=== PATIENT | female | born 2000 | race Hispanic/Latino ===

== ENCOUNTER 2020-07-31 08:40 | Outpatient (CLI) | payer OTHER, SELFPAY ==
--- NOTE | 2020-07-31 | ECG_ITS ---
Measurements Intervals [place] Rate: 70 P: 8 VA: 137 QRS: 23 QRSD: 86 T: 24 QT: 374 QTc: 404 Interpretive Statements SINUS RHYTHM NORMAL ECG Electronically Signed On 07-31-2020 10:16:50 [employer] by Tyrone Yan D.O.
--- NOTE | 2020-07-31 | ECHO_ITS ---
Patient Info Name: Taylor Londono Age: 19 years : 2000 Gender: Female Ht: 64 in Wt: 210 lbs BSA: 2.12 m2 HR: 66 bpm BP: 130 / 97 mmHg Heart Rhythm: Sinus Rhythm Technical Quality: Good Exam Date: 07/31/2020 9:29 AM Exam Location: [facility] Pulmonary Patient Status: Outpatient Admit Date: 07/31/2020 Staff Ordering Physician: Paddy Barraza MD Leasing Manager: Hossein Almanza, JUANA, RT Attending Provider: Paddy Barraza MD Exam Type: CA echo doppler color flow Study Info Indications I10 - Essential (primary) hypertension Complete two-dimensional, color flow and Doppler transthoracic echocardiogram is performed. Summary 1. Complete two-dimensional, color flow and Doppler transthoracic echocardiogram is performed. 2. Left ventricular chamber dimension is normal. 3. Left ventricular systolic function is normal, estimated at 55-60%. 4. There is mildly increased left ventricular wall thickness. 5. Left ventricular septal wall motion is normal. 6. The left ventricular diastolic function is normal. 7. The mitral valve has thickened leaflets. 8. There is mild to moderate mitral valve regurgitation. 9. There is mild tricuspid valve regurgitation. 10. There is mild pulmonic regurgitation. Left Ventricle Left ventricular chamber dimension is normal. Left ventricular systolic function is normal, estimated at 55-60%. There is mildly increased left ventricular wall thickness. Left ventricular septal wall motion is normal. The left ventricular diastolic function is normal. Right Ventricle Right ventricular chamber dimension is normal. Right ventricular systolic function is normal. Left Atria Left atrial chamber dimension is normal. Right Atria Right atrial chamber dimension is normal. Atrial Septum Intact interatrial septum visualized by color flow imaging. Aortic Valve The aortic valve is trileaflet. There is no aortic valve sclerosis. There is no aortic valve stenosis. There is trace aortic valve regurgitation. Pulmonic Valve The pulmonic valve is normal. There is no pulmonic valve stenosis. There is mild pulmonic regurgitation. Mitral Valve The mitral valve has thickened leaflets. There is no mitral valve stenosis. There is mild to moderate mitral valve regurgitation. Tricuspid Valve The tricuspid valve leaflets are normal. There is no significant tricuspid valve stenosis. There is mild tricuspid valve regurgitation. Pericardium/Pleural The pericardium appears normal. There is trivial pericardial effusion. Inferior Vena Cava Normal inferior vena cava with >50% collapse upon inspiration consistent with normal right atrial pressure, 5 mmHg. Aorta The aortic root size at the sinus of Valsalva is normal. The prox ascending aorta size is normal. Left Ventricular Outflow Tract Name Value Normal LVOT 2D LVOT Diameter 2.0 cm LVOT Doppler LVOT Peak Gradient 5 mmHg LVOT Mean Gradient 3 mmHg LVOT VTI 21 cm LVOT VTI/AV VTI Ratio 0.7
== END 2020-07-31 08:41 | disposition home or self-care (01) ==
DX: I10 Essential (primary) hypertension (principal); I08.3 Combined rheumatic disorders of mitral, aortic and tricuspid valves
CPT/HCPCS: 93005; 93306

== ENCOUNTER 2020-08-28 13:54 | Outpatient (CLI) | payer OTHER, SELFPAY ==
--- NOTE | ~2020-08-28 | US_ITS ---
EXAMINATION: US renal BI EXAM DATE: 08/28/2020 14:42 INDICATION: Hypertension. Chronic kidney disease. TECHNIQUE: Multiple grayscale and Doppler images of the kidneys were obtained (by a technologist who performed the scan) and subsequently reviewed. There is no prior study for comparison. FINDINGS: Right kidney: There is normal contour and mildly increased echogenicity. It measures 9.9 x 4.4 x 7.3 centimeters. There are no focal renal lesions identified. There is no hydronephrosis. Left kidney: There is normal contour and mildly increased echogenicity. It measures 9.3 x 5.3 x 3.6 centimeters. There are no focal renal lesions identified. There is no hydronephrosis. Bladder unremarkable. IMPRESSION: Mildly echogenic renal cortices consistent with medical renal disease. Reviewed, dictated and finalized at location B. TER INSPECTOR IMPRESSION: Mildly echogenic renal cortices consistent with medical renal disea se.
== END 2020-08-28 13:55 | disposition home or self-care (01) ==
DX: I12.9 Hypertensive chronic kidney disease with stage 1 through stage 4 chronic kidney disease, or unspecified chronic kidney disease (principal); N18.9 Chronic kidney disease, unspecified
CPT/HCPCS: 76775

== ENCOUNTER 2020-09-29 14:31 | Outpatient (RCR) | payer OTHER, SELFPAY ==
[2020-09-29 16:39] LABS: Glucose 1 Hour PP 50gm Dose 105 mg/dL
[2020-09-29 17:27] LABS: HIV 1/2 Ab P24 Ag Result Negative (Negative)
[2020-10-02 07:18] LABS: Rapid Plasma Reagin Non-Reactive (NonReactive)
[2020-10-02] MEDS: RHO(D) IMMUNE GLOBULIN 300 MCG/2 ML SYRINGE IM (12:56)
== END 2020-12-28 23:59 | disposition home or self-care (01) ==
LOC: ANHLAB 14:31
PROVIDERS: Visit Provider Obstetrics & Gynecology
DX: Z11.4 Encounter for screening for human immunodeficiency virus [HIV] (principal); Z29.13 Encounter for prophylactic Rho(D) immune globulin; O36.0130 Maternal care for anti-D [Rh] antibodies, third trimester, not applicable or unspecified; Z3A.00 Weeks of gestation of pregnancy not specified
CPT/HCPCS: 36415; 82947; 85461; 86592; 86703; 86850; 86900; 86901; 90384; 96372; G0432; J2790

== ENCOUNTER 2020-10-20 11:42 | Outpatient (CLI) | payer OTHER, SELFPAY ==
[2020-10-20 12:00] VITALS: RESP 20; TEMP 36.8
[2020-10-20 12:07] VITALS: BP 145/92; PULSE 91
[2020-10-20 12:43] VITALS: BP 136/83; PULSE 85
[2020-10-20 13:09] VITALS: BP 134/87; PULSE 87
[2020-10-20 14:08] LABS: Basophils Percent Auto 0.3 % (0.2-1.2); Eosinophils Absolute Auto 0.1 K/mm3 (0-0.3); Eosinophils Percent Auto 0.8 % (0-4.4); Hematocrit 27.7 % (37.0-47.0); Hemoglobin 9.4 g/dL (12.0-15.0); Immature Granulocyte Percent A 0.7 % (0-0.5); Lymphocytes Absolute Auto 1.91 K/mm3 (0.9-3.2); Lymphocytes Percent Auto 12.8 % (18.3-44.2); Mean Corpuscular HGB Conc 33.9 g/dl (32-36); Mean Corpuscular Hemoglobin 31.4 pg (26-34); Mean Corpuscular Volume 92.6 fl (80-100); Mean Platelet Volume 10.5 fl (7.4-10.4); Monocytes Absolute Auto 0.9 K/mm3 (0.1-0.6); Neutrophils Absolute Auto 11.9 K/mm3 (1.3-6.7); Neutrophils Percent Auto 79.4 % (45.5-73.1); Platelet Count Result 297 k/mm3 (150-375); Red Blood Count 2.99 M/mm3 (4.2-5.4); Red Cell Distribution Width 12.4 % (11.5-14.5)
[2020-10-20 14:14] LABS: Creatinine Urine 167.8 mg/dL; Total Protein Urine Random 21 mg/dL; Ur Ttl Prot Creatinine Ratio 0.13 mg/mg (0-0.20)
[2020-10-20 14:15] LABS: Add Urine Microscopic? YES; Appearance Urine Cloudy (Clear); Bacteria Urine Trace /hpf; Bilirubin Urine Negative (Negative); Blood Urine Negative (Negative); Color Urine Yellow (Yellow); Glucose Urine UA Negative (Negative); Ketones Urine Negative (Negative); Leukocyte Esterase Ur Trace LEU/UL (NEGATIVE); Mucus Urine Rare /lpf; Nitrate Urine Negative (Negative); Protein Urine 1+ mg/dL (Negative); RBC Urine 0-2 /hpf (0-2); Specific Grav Ur 1.021 (1.001-1.035); Squamous Epithelial Cell Urine Many /hpf (Few); Urobilinogen Urine Negative mg/dL (<2.0); WBC Urine 0-3 /hpf (0-3)
[2020-10-20 14:17] LABS: Alanine Aminotransferase 18 U/L (4-35); Albumin Level 3.3 g/dL (3.5-5.1); Alkaline Phosphatase 100 U/L (38-126); Anion Gap 4 mmol/L (8-16); Aspartate Amino Transferase 16 U/L (14-36); Bilirubin,Total < 0.1 mg/dL (0.2-1.3); Blood Urea Nitrogen 18 mg/dL (7-17); Calcium 8.7 mg/dL (8.4-10.2); Carbon Dioxide 20 mmol/L (22-30); Chloride 113 mmol/L (98-107); Estimated Glomerular Filt Rate 48; Glucose 91 mg/dL (65-105); Potassium 4.8 mmol/L (3.4-5.0); Sodium 137 mmol/L (137-145); Uric Acid 6.3 mg/dL (2.5-7.5)
[2020-10-20 14:21] VITALS: BMI 37.8
--- NOTE | 2020-10-20 14:22 | OBADM ---
This patient, Taylor Londono, admitted to the OB room OB Post 116 for observation. Patient/family oriented to hospital policies and general routines including ID bracelet, bed and alarms, visiting hours, pain management, procedures, bathroom and other care routines, personal items, smoking policy, room service/diet, and visiting hours. Patient/Family are encouraged to report perceived risks to care and to ask questions if they do not understand what they are told or what they should do.
[2020-10-20] MEDS: ACETAMINOPHEN 500 MG TABLET 1000 MG PO (14:34)
== END 2020-10-20 15:23 | disposition home or self-care (01) ==
LOC: ANHOBOP 11:46 → ANHOBPP 11:47
PROVIDERS: Advanced Practice Midwife; Visit Provider Obstetrics & Gynecology
DX: O13.9 Gestational [pregnancy-induced] hypertension without significant proteinuria, unspecified trimester (principal); Z3A.00 Weeks of gestation of pregnancy not specified
CPT/HCPCS: 36415; 59025; 80053; 81001; 82570; 84156; 84550; 85025; 87086; 87088; 99199; A9270

== ENCOUNTER 2020-11-06 14:37 | Outpatient (RCR) | payer OTHER, SELFPAY ==
[2020-11-06] MEDS: BETAMETHASONE SOD PHOS/ACETATE 30 MG/5 ML VIAL 12 MG IM (15:02)
== END 2020-11-17 10:11 | disposition home or self-care (01) ==
LOC: ANHOBOP 14:37
PROVIDERS: Visit Provider Obstetrics & Gynecology
DX: O36.8990 Maternal care for other specified fetal problems, unspecified trimester, not applicable or unspecified (principal); Z3A.00 Weeks of gestation of pregnancy not specified
CPT/HCPCS: 96372; J0702

== ENCOUNTER 2020-11-07 12:11 | Inpatient (IN) | payer OTHER, SELFPAY ==
[2020-11-07] VITALS (15 sets, daily range): BP systolic 129–157; BP diastolic 67–99; PULSE 76–110; TEMP 36.6–36.9; BMI 37.6
--- NOTE | 2020-11-07 12:44 | LDADM ---
This patient, Taylor Londono, was admitted to Labor/Delivery/Recovery 108 on 11/07/20 at 12:11. Plans for labor, pain management and were discussed with patient. Patient/family oriented to hospital policies and general routines including ID bracelet, bed and alarms, visiting hours, pain management, procedures, bathroom and other care routines, personal items, smoking policy, room service/diet and guest tray routines, security routines, call light, and visiting hours. Patient/Family are encouraged to report perceived risks to care and to ask questions if they do not understand what they are told or what they should do. See OBIX for further documentation.
[2020-11-07 13:11] LABS: Basophils Percent Auto 0.1 % (0.2-1.2); Hematocrit 28.2 % (37.0-47.0); Hemoglobin 9.6 g/dL (12.0-15.0); Immature Granulocyte Absolute 0.25 K/mm3 (0.00-0.031); Immature Granulocyte Percent A 1.2 % (0-0.5); Lymphocytes Absolute Auto 1.88 K/mm3 (0.9-3.2); Lymphocytes Percent Auto 8.9 % (18.3-44.2); Mean Corpuscular Hemoglobin 31.4 pg (26-34); Mean Corpuscular Volume 92.2 fl (80-100); Mean Platelet Volume 10.6 fl (7.4-10.4); Monocytes Absolute Auto 1.2 K/mm3 (0.1-0.6); Monocytes Percent Auto 5.4 % (2.6-8.5); Neutrophils Absolute Auto 17.9 K/mm3 (1.3-6.7); Neutrophils Percent Auto 84.4 % (45.5-73.1); Platelet Count Result 381 k/mm3 (150-375); Red Blood Count 3.06 M/mm3 (4.2-5.4); Red Cell Distribution Width 12.6 % (11.5-14.5); White Blood Count 21.2 K/mm3 (4.5-10.0)
--- NOTE | 2020-11-07 13:11 | WPDOBADMIT ---
Obstetrics - Admit Note Admission Note: See record, especially my note from yesterday. G1 34.2 with cHTN since age 8. Now with elevated LFTs and uric acid and worsening BPs over last 2 weeks. On procardia 60 BID and labetalol 200 BID. Discussed with MFM and recommend delivery. Received BMTZ #1 yesterday. FHT category 1. Cervix . Vertex on BSUS. Cervidil placed. BMTZ #2 today.
[2020-11-07] MEDS: DINOPROSTONE 10 MG VAG INSERT VAGINAL (13:12)
[2020-11-07 13:22] LABS: Alanine Aminotransferase 69 U/L (4-35); Albumin Level 3.4 g/dL (3.5-5.1); Alkaline Phosphatase 112 U/L (38-126); Anion Gap 4 mmol/L (8-16); Aspartate Amino Transferase 26 U/L (14-36); Bilirubin,Total 0.1 mg/dL (0.2-1.3); Blood Urea Nitrogen 22 mg/dL (7-17); Calcium 9.4 mg/dL (8.4-10.2); Carbon Dioxide 17 mmol/L (22-30); Chloride 115 mmol/L (98-107); Estimated CRCL calculation 51 ml/min; Estimated Glomerular Filt Rate 36; Glucose 113 mg/dL (65-105); Potassium 4.7 mmol/L (3.4-5.0); Sodium 136 mmol/L (137-145)
[2020-11-07] MEDS: BETAMETHASONE SOD PHOS/ACETATE 30 MG/5 ML VIAL 12 MG IM (15:42)
[2020-11-07 18:04] LABS: Add Urine Microscopic? YES; Appearance Urine Cloudy (Clear); Bacteria Urine Trace /hpf; Bilirubin Urine Negative (Negative); Blood Urine Negative (Negative); Color Urine Yellow (Yellow); Glucose Urine UA Negative (Negative); Ketones Urine Negative (Negative); Leukocyte Esterase Ur 2+ LEU/UL (Negative); Mucus Urine Rare /lpf; Nitrate Urine Negative (Negative); Protein Urine 1+ mg/dL (Negative); RBC Urine 0-2 /hpf (0-2); Specific Grav Ur 1.024 (1.001-1.035); Squamous Epithelial Cell Urine Many /hpf (Few); Transitional Epi Cells Urine Rare /hpf (None Seen)
[2020-11-07 18:20] LABS: Amphetamine Screen Urine Negative (Negative); Barbiturate Screen Urine Negative (Negative); Benzodiazepines Screen Urine Negative (Negative); Cannabinoid Screen Urine Positive (Negative); Cocaine Screen Urine Negative (Negative); Methadone Screen Urine Negative (Negative); Opiate Screen Urine Negative (Negative); Phencyclidine Screen Urine Negative (Negative)
[2020-11-07 20:48] LABS: Add Urine Microscopic? YES; Appearance Urine Clear (Clear); Bilirubin Urine Negative (Negative); Blood Urine Negative (Negative); Color Urine Yellow (Yellow); Glucose Urine UA Negative (Negative); Ketones Urine Negative (Negative); Leukocyte Esterase Ur Negative LEU/UL (NEGATIVE); Mucus Urine Rare /lpf; Nitrate Urine Negative (Negative); Protein Urine 1+ mg/dL (Negative); Specific Grav Ur 1.016 (1.001-1.035); Squamous Epithelial Cell Urine Occasional /hpf (Few); Urobilinogen Urine Negative mg/dL (<2.0); WBC Urine 0-3 /hpf (0-3)
--- NOTE | 2020-11-07 22:00 | PC.NURSE ---
pt reports that pt took pt evening dose of 200mg of labetalol po this evening from her home perscription supply. rn unaware of pt self administering and pt instructed to not take anymore medication not administered by rn.
[2020-11-08] VITALS (208 sets, daily range): BP systolic 85–179; BP diastolic 36–110; PULSE 71–133; RESP 14–20; TEMP 36.4–37; O2SAT 95–100
[2020-11-08] MEDS: LACTATED RINGERS 1,000 ML 125 ML IV CONT (00:24)
[2020-11-08] MEDS: fentaNYL CITRATE INJ (*CRX) 100 MCG/2 ML VIAL 50 MCG IV PUSH (00:34)
--- NOTE | 2020-11-08 01:02 | WPDANESEPP ---
Anes - Eval Pre Procedure Procedure: Labor epidural Date/Time: 11/08/20 01:02 Surgeon: Ezequiel Preop Diagnosis: Abd pain with contractions Pre Op Diagnosis: MIL Patient Data Age: 20 Gender: F Height: 5 ft 4 in Weight: 99.5 kg Last Vital Signs Temp 98.5 F 11/07/20 18:15 Pulse 89 11/08/20 01:00 BP 133/75 11/08/20 01:00 Allergies Allergy/AdvReac Type Severity Reaction Status Date / Time No Known Allergies Allergy Verified 11/07/20 12:34 Home Medications Medication Instructions Recorded Confirmed Type aspirin 81 mg chewable tablet 81 mg PO DAILY 09/07/20 11/07/20 History nifedipine 60 mg tablet,extended 60 mg PO DAILY 09/07/20 11/07/20 History release polysaccharide iron complex 150 mg 150 mg PO DAILY 09/07/20 11/07/20 History iron capsule prenat.vits,cheri,ykh-bavx-awttr 1 tablet PO DAILY 09/07/20 11/07/20 History labetalol 200 mg PO BID 11/07/20 11/07/20 History Laboratory Tests 11/07/20 11/07/20 11/07/20 12:57 12:57 12:57 WBC 21.2 K/mm3 H K/mm3 (4.5-10.0) RBC 3.06 M/mm3 L M/mm3 (4.2-5.4) Hgb 9.6 g/dL L g/dL (12.0-15.0) Hct 28.2 % L % (37.0-47.0) MCV 92.2 fl fl (80-100) MCH 31.4 pg pg (26-34) MCHC 34.0 g/dl g/dl (32-36) RDW 12.6 % % (11.5-14.5) Plt Count 381 k/mm3 H k/mm3 (150-375) MPV 10.6 fl H fl (7.4-10.4) Immature Gran % (Auto) 1.2 % H % (0-0.5) Neut % (Auto) 84.4 % H % (45.5-73.1) Lymph % (Auto) 8.9 % L % (18.3-44.2) [place] % (Auto) 5.4 % % (2.6-8.5) Eos % (Auto) 0.0 % % (0-4.4) Baso % (Auto) 0.1 % L % (0.2-1.2) Lymph # (Auto) 1.88 K/mm3 K/mm3 (0.9-3.2) [place] # (Auto) 1.2 K/mm3 H K/mm3 (0.1-0.6) Eos # (Auto) 0.0 K/mm3 K/mm3 (0-0.3) Baso # (Auto) 0.0 K/mm3 K/mm3 (0.0-0.1) Abs Immat Gran (auto) 0.25 K/mm3 H K/mm3 (0.00-0.031) Absolute Neuts (auto) 17.9 K/mm3 H K/mm3 (1.3-6.7) Absolute Nucleated RBC 0.0 K/mm3 K/mm3 (0.0-0.012) Nucleated RBC % 0.0 % % (0.0-0.2) Sodium Potassium Chloride Carbon Dioxide Anion Gap BUN Creatinine Estim Creat Clear Calc Estimated GFR Glucose Uric Acid 7.0 mg/dL mg/dL (2.5-7.5) Calcium Total Bilirubin AST ALT Alkaline Phosphatase Total Protein Albumin Urine Color Urine Appearance Urine pH Ur Specific [place] Urine Protein Urine Glucose (UA) Urine Ketones Ur Blood (Man) Urine Nitrate Urine Bilirubin Urine Urobilinogen Ur Leukocyte Esterase Leukocyte Esterase Rfl Urine RBC Urine WBC Ur Squamous Epith Cells Ur Transition Epith Cell Urine Bacteria Urine Mucus Urine Opiates Screen Urine Methadone Screen Ur Barbiturates Screen Ur Phencyclidine Scrn Ur Amphetamine Screen U Benzodiazepines Scrn Urine Cocaine Screen U Cannabinoids Screen RPR Pending SARS-CoV-2 RNA (RT-PCR) Blood Type Antibody Screen Antibody Identification Antigen Identification JEANNIE, IgG Interpret JEANNIE, Poly Interpret JEANNIE, Complement Interp 11/07/20 11/07/20 11/07/20 12:57 12:57 17:41 WBC RBC Hgb Hct MCV MCH MCHC RDW Plt Count MPV Immat
[2020-11-08] MEDS: AMPICILLIN 2 GM/NS 100 ML 2 GM/100 ML BAG IVPB (02:00)
[2020-11-08] MEDS: MAGNESIUM SULF 4 GM/WATER100ML 4 GM/100 ML BAG IVPB (02:03)
[2020-11-08] MEDS: MAGNESIUM SULF 20GM/WATER500ML 500 ML 50 MG IV CONT ×3 (02:41→22:35)
[2020-11-08] MEDS: LACTATED RINGERS 1,000 ML 75 ML IV CONT ×2 (03:11→22:34)
[2020-11-08] MEDS: OXYTOCIN 30 UNITS/NS 500 ML 30 UNITS/500 ML BAG IV CONT (03:20)
[2020-11-08] MEDS: AMPICILLIN 1 GM/NS 50 ML 1 GM/50 ML BAG IVPB (06:15)
--- NOTE | 2020-11-08 07:42 | WPDHPUPDATE1 ---
History and Physical Update Update Date/Time: 11/08/20 07:42 Fht 120 and reactive without decels SVE 50/-3 AROM clear IUPC placed without difficulty Continue amp, pit, and mag. BPs 130s-140s/80s. Will hold am nifedipine for now.
[2020-11-08] MEDS: LABETALOL HCL 100 MG TABLET 200 MG PO ×2 (09:06→19:06)
[2020-11-08] MEDS: miSOPROStol 200 MCG TABLET 800 MCG (10:56)
[2020-11-08] MEDS: CARBOPROST TROMETHAMINE 250 MCG/ML AMPUL IM ×2 (11:01→16:54)
[2020-11-08] MEDS: OXYTOCIN 30 UNITS/NS 500 ML 30 UNITS/500 ML BAG 125 UNITS IV CONT (11:19)
--- NOTE | 2020-11-08 11:19 | PM.OBPRVD ---
OB - Delivery Note Procedure Delivery date: 11/08/20 Procedure: events: Pre-Eclampsia and Labor Induction Intrapartal events: Bleeding Delivery augmentation: rupture of membranes Delivery monitor: external FHT and internal uterine Route of delivery: Laceration Description: Vaginal - 2nd Degree Delivery repair: vicryl Specimen: Yes (placenta) Quantitative Blood Loss (ml): 806 Anesthesia type: Epidural Disposition: floor Narrative: With adequate expulsive efforts by the mother, the baby's head was delivered OA. The baby's anterior shoulder was delivered under the pubic symphysis without difficulty. The posterior shoulder and the rest of the baby delivered without difficulty. The was placed on the mothers chest and suctioned and stimulated. The cord was clamped and cut after 30 seconds. Mother and baby both stable. hemorrhage due to atony treated with pitocin, 800mcg cytotec, and hemabate. Baby Date of : 11/08/20 Time of : 10:38 Weeks of gestation at delivery: 34 Infant gender: Male presentation: vertex Placenta delivery description: Spontaneous cord vessel description: 3 Vessels, Nuchal Cord and Delayed Cord Clamping Narrative: weight and apgars pending
[2020-11-08] MEDS: DIPHENOXYLATE/ATROPINE (*CRX) 2.5 MG TABLET 2 TABLET PO (11:45)
[2020-11-08] MEDS: IBUPROFEN 600 MG TABLET PO ×2 (11:45→19:05)
[2020-11-08 13:22] LABS: Hematocrit 28.6 % (37.0-47.0); Hemoglobin 9.4 g/dL (12.0-15.0); Mean Corpuscular HGB Conc 32.9 g/dl (32-36); Mean Corpuscular Hemoglobin 31.1 pg (26-34); Mean Corpuscular Volume 94.7 fl (80-100); Mean Platelet Volume 10.3 fl (7.4-10.4); Platelet Count Result 409 k/mm3 (150-375); Red Blood Count 3.02 M/mm3 (4.2-5.4); Red Cell Distribution Width 12.5 % (11.5-14.5); White Blood Count 29.4 K/mm3 (4.5-10.0)
[2020-11-08] MEDS: HYDROcodone/acetaminophen (*CRX) 5-325 MG TABLET 1 TAB PO (13:30)
[2020-11-08 14:00] LABS: Rapid Plasma Reagin Non-Reactive (NonReactive)
--- NOTE | 2020-11-08 14:15 | PC.NURSE ---
PT arrived on unit via wheelchair accompanied by significant other and taken to room 285. PT oriented to room and surroundings. PT introductions made and plan of care discussed per post , PIH, magnesium sulfate, baby in level 2 nursery, bottle feeding, daily care activities, Pain management, welcome packet. PT received instructions via one to one discussion and mom baby care guide. PT shows no barriers to learning and she was the only recipient. Pt verbalized understanding.
[2020-11-08 15:23] LABS: SARS-CoV-2 RNA PCR Negative
--- NOTE | 2020-11-08 15:42 | PC.NURSE ---
PT called out to floor that she needed assistance to get up to void. When arriving in the room with a bedside commode, pt was sitting on the side of the bed bleeding. PT placed back in bed in supine position and evaluated for excessive bleeding, clots, v/s. PT was cleaned up and bed was changed and fundus was massaged. melendez catheter was inserted without difficulty and urine was clear and yellow. weighed chux and pad and called Dr Nieves for further orders. Orders received and noted. Pt states feeling much better.
[2020-11-08 17:20] LABS: Hematocrit 22.1 % (37.0-47.0); Hemoglobin 7.4 g/dL (12.0-15.0); Mean Corpuscular HGB Conc 33.5 g/dl (32-36); Mean Corpuscular Hemoglobin 31.1 pg (26-34); Mean Corpuscular Volume 92.9 fl (80-100); Mean Platelet Volume 10.3 fl (7.4-10.4); Platelet Count Result 354 k/mm3 (150-375); Red Blood Count 2.38 M/mm3 (4.2-5.4); Red Cell Distribution Width 12.4 % (11.5-14.5); White Blood Count 24.7 K/mm3 (4.5-10.0)
[2020-11-08] MEDS: DOCUSATE SODIUM 100 MG CAPSULE PO (19:05)
[2020-11-08] MEDS: POLYSACCHARIDE IRON COMPLEX 150 MG CAPSULE PO (19:05)
[2020-11-09] MEDS: IBUPROFEN 600 MG TABLET PO ×3 (01:52→17:59)
[2020-11-09] MEDS: ACETAMINOPHEN 325 MG TABLET 650 MG PO (01:52)
[2020-11-09 03:00] VITALS: BP 133/88; PULSE 75; RESP 18; TEMP 36.7; O2SAT 99
[2020-11-09 05:42] LABS: Basophils Percent Auto 0.1 % (0.2-1.2); Eosinophils Absolute Auto 0.1 K/mm3 (0-0.3); Eosinophils Percent Auto 0.2 % (0-4.4); Hematocrit 21.8 % (37.0-47.0); Hemoglobin 7.2 g/dL (12.0-15.0); Immature Granulocyte Absolute 0.19 K/mm3 (0.00-0.031); Immature Granulocyte Percent A 0.9 % (0-0.5); Lymphocytes Absolute Auto 2.34 K/mm3 (0.9-3.2); Lymphocytes Percent Auto 11.6 % (18.3-44.2); Mean Corpuscular Hemoglobin 31.2 pg (26-34); Mean Corpuscular Volume 94.4 fl (80-100); Mean Platelet Volume 10.3 fl (7.4-10.4); Monocytes Absolute Auto 1.5 K/mm3 (0.1-0.6); Monocytes Percent Auto 7.6 % (2.6-8.5); Neutrophils Absolute Auto 16.1 K/mm3 (1.3-6.7); Neutrophils Percent Auto 79.6 % (45.5-73.1); Platelet Count Result 389 k/mm3 (150-375); Red Blood Count 2.31 M/mm3 (4.2-5.4); Red Cell Distribution Width 12.3 % (11.5-14.5); White Blood Count 20.2 K/mm3 (4.5-10.0)
[2020-11-09 05:49] LABS: Alanine Aminotransferase 42 U/L (4-35); Albumin Level 2.8 g/dL (3.5-5.1); Alkaline Phosphatase 104 U/L (38-126); Anion Gap 3 mmol/L (8-16); Aspartate Amino Transferase 21 U/L (14-36); Bilirubin,Total 0.1 mg/dL (0.2-1.3); Blood Urea Nitrogen 22 mg/dL (7-17); Calcium 7.5 mg/dL (8.4-10.2); Carbon Dioxide 18 mmol/L (22-30); Chloride 108 mmol/L (98-107); Estimated CRCL calculation 61 ml/min; Estimated Glomerular Filt Rate 44; Glucose 90 mg/dL (65-105); Potassium 5.5 mmol/L (3.4-5.0); Sodium 129 mmol/L (137-145); Uric Acid 7.2 mg/dL (2.5-7.5)
[2020-11-09 06:50] VITALS: BP 137/84; PULSE 81; RESP 16; TEMP 37.1; O2SAT 100
[2020-11-09 06:54] VITALS: PULSE 81
[2020-11-09] MEDS: LEVOTHYROXINE SODIUM 50 MCG TABLET PO (06:54)
[2020-11-09] MEDS: LABETALOL HCL 100 MG TABLET 200 MG PO ×2 (06:54→20:05)
[2020-11-09] MEDS: POLYSACCHARIDE IRON COMPLEX 150 MG CAPSULE PO ×2 (06:55→17:58)
[2020-11-09] MEDS: DOCUSATE SODIUM 100 MG CAPSULE PO ×2 (06:55→17:58)
--- NOTE | 2020-11-09 07:28 | WPDANLDPN2 ---
Anes-Prog Note L&D Date/Time: 11/09/20 07:28 Comfortable throughout: labor and delivery Neuraxial method: epidural Epidural/Spinal procedure site: clean & non-tender Neuro status: Neuro function grossly intact. Cardiovascular status: normal Respiratory status: normal Airway patency: baseline Mental status: baseline Post-Op hydration status: normal Vital Signs: Last Vital Signs Temp 36.7 C 11/09/20 03:00 Pulse 81 11/09/20 06:54 Resp 18 11/09/20 03:00 BP 133/88 11/09/20 03:00 Pulse Ox 99 11/09/20 03:00 Pain score (VAS): 0 I/O: Intake & Output 11/08/20 11/08/20 11/09/20 15:59 23:59 07:59 Intake Total 1500 1900 100 Output Total 236 2350 900 Balance 1264 -145 -124 Post-procedural complaints: none Patient feedback: Patient satisfied with anesthetic care.
--- NOTE | 2020-11-09 07:58 | PM.OBPNVD ---
OB - PN: Subj Subjective Date/time seen: 11/09/20 07:58 Patient comments: no complaints baby status: doing well OB - PN: Obj Data Labs CBC & Chem 7: 11/09/20 05:10 11/09/20 05:10 Labs: Laboratory Results - last 24 hr 11/07/20 11/07/20 11/08/20 12:57 17:41 13:12 WBC 29.4 H RBC 3.02 L Hgb 9.4 L Hct 28.6 L MCV 94.7 MCH 31.1 MCHC 32.9 RDW 12.5 Plt Count 409 H MPV 10.3 Immature Gran % (Auto) Neut % (Auto) Lymph % (Auto) [place] % (Auto) Eos % (Auto) Baso % (Auto) Lymph # (Auto) [place] # (Auto) Eos # (Auto) Baso # (Auto) Abs Immat Gran (auto) Absolute Neuts (auto) Absolute Nucleated RBC Nucleated RBC % Sodium Potassium Chloride Carbon Dioxide Anion Gap BUN Creatinine Estim Creat Clear Calc Estimated GFR Glucose Uric Acid Calcium Total Bilirubin AST ALT Alkaline Phosphatase Total Protein Albumin RPR Non-reactive SARS-CoV-2 RNA (RT-PCR) Negative Blood Type Antibody Screen Screen Baby's Blood Type Baby's JEANNIE Doses of RhIg Required 11/08/20 11/09/20 11/09/20 17:16 05:10 05:10 WBC 24.7 H 20.2 H RBC 2.38 L 2.31 L Hgb 7.4 L 7.2 L Hct 22.1 L 21.8 L MCV 92.9 94.4 MCH 31.1 31.2 MCHC 33.5 33.0 RDW 12.4 12.3 Plt Count 354 389 H MPV 10.3 10.3 Immature Gran % (Auto) 0.9 H Neut % (Auto) 79.6 H Lymph % (Auto) 11.6 L [place] % (Auto) 7.6 Eos % (Auto) 0.2 Baso % (Auto) 0.1 L Lymph # (Auto) 2.34 [place] # (Auto) 1.5 H Eos # (Auto) 0.1 Baso # (Auto) 0.0 Abs Immat Gran (auto) 0.19 H Absolute Neuts (auto) 16.1 H Absolute Nucleated RBC 0.0 Nucleated RBC % 0.0 Sodium 129 L Potassium 5.5 H Chloride 108 H Carbon Dioxide 18 L Anion Gap 3 L BUN 22 H Creatinine 1.50 H Estim Creat Clear Calc 61 Estimated GFR 44 L Glucose 90 Uric Acid 7.2 Calcium 7.5 L Total Bilirubin 0.1 L AST 21 ALT 42 H Alkaline Phosphatase 104 Total Protein 5.0 L Albumin 2.8 L RPR SARS-CoV-2 RNA (RT-PCR) Blood Type Antibody Screen Screen Baby's Blood Type Baby's JEANNIE Doses of RhIg Required 11/09/20 05:10 WBC RBC Hgb Hct MCV MCH MCHC RDW Plt Count MPV Immature Gran % (Auto) Neut % (Auto) Lymph % (Auto) [place] % (Auto) Eos % (Auto) Baso % (Auto) Lymph # (Auto) [place] # (Auto) Eos # (Auto) Baso # (Auto) Abs Immat Gran (auto) Absolute Neuts (auto) Absolute Nucleated RBC Nucleated RBC % Sodium Potassium Chloride Carbon Dioxide Anion Gap BUN Creatinine Estim Creat Clear Calc Estimated GFR Glucose Uric Acid Calcium Total Bilirubin AST ALT Alkaline Phosphatase Total Protein Albumin RPR SARS-CoV-2 RNA (RT-PCR) Blood Type O Negative Antibody Screen TNP Screen Negative Baby's Blood Type O pos Baby's JEANNIE Positive Doses of RhIg Required 1 OB - PN A/P Plan day: 1 Plan: routine care Time Spent With Patient Time: Total time spent is greater than 50% in coordination of care (as documented) at patient's floor/unit and/or counseling patient: Time with patient: less than 15 minutes Review of Systems Review of Systems: All systems reviewed & are unremarkable except as noted in HPI and below Gastrointestinal: Gastrointestinal: Reports nausea Comments: Declines medication Exam Narrative: Exam Narrative: Fundus firm and vaginal flow controlled. No lower ext redness, warmth, or edema. Negative homans. Denies h/a, v/d or e/p. Reflexes normal. Const: General: comfortable Chest: Breast/axilla inspection: normal inspection of the breasts Resp: Effort & Inspection: normal respiratory effort Cardio: Rate: regular rate GI: GI Palp: Yes Soft to palpation Psych: Appearance: boogie
[2020-11-09 11:48] VITALS: BP 122/78; PULSE 83; RESP 18; TEMP 37.2; O2SAT 98
[2020-11-09] MEDS: RHO(D) IMMUNE GLOBULIN 300 MCG/2 ML SYRINGE IM (13:19)
[2020-11-09 16:20] VITALS: BP 134/88; PULSE 82; RESP 18; TEMP 37.6; O2SAT 99
--- NOTE | 2020-11-09 19:23 | PC.NURSE ---
1700 pt sent to visit baby in Level II nursery, per wheelchair. 1800, pt returned to room. Baby to be transferred up to be with her after his bath.
[2020-11-09 20:05] VITALS: PULSE 62
[2020-11-10] MEDS: LEVOTHYROXINE SODIUM 50 MCG TABLET PO (07:27)
--- NOTE | 2020-11-10 07:47 | PM.OBPNVD ---
OB - PN: Subj Subjective Date/time seen: 11/10/20 07:47 Patient comments: no complaints and pain well controlled baby status: doing well [place] feeding status: exclusively bottle feeding Narrative: Baby doing well and in room. Denies STERN/BV/EP. Just tired. Denies dizziness/SOB with ambulation. OB - PN: Obj Data Labs CBC & Chem 7: 11/09/20 05:10 11/09/20 05:10 Labs: Laboratory Results - last 24 hr 11/09/20 05:10 Blood Type O Negative Antibody Screen TNP Screen Negative Baby's Blood Type O pos Baby's JEANNIE Positive Doses of RhIg Required 1 OB - PN A/P Plan day: 2 Plan: routine care and discharge home Comments: BPs good on labetalol 200 BID. continue to hold nifedipine. Discussed significant anemia. Currently asypmtomatic except fatigue. Will restart PNV and iron at home. Home today, BP check next week. Time Spent With Patient Time: Total time spent is greater than 50% in coordination of care (as documented) at patient's floor/unit and/or counseling patient: Time with patient: less than 15 minutes Exam Narrative: Exam Narrative: NAD abdomen soft, nontender, fundus firm below the umbilicus Extremities nontender, 1+ edema
[2020-11-10 07:50] VITALS: BP 127/81; PULSE 83; RESP 16; TEMP 37.1; O2SAT 98
--- NOTE | 2020-11-10 07:53 | PM.OBDSVD ---
DS: Admitting Diagnosis Admitting Diagnosis Admitting Diagnosis: IUP at 34 weeks cHTN with superimposed severe PreE DS: Discharge Diagnosis Discharge Diagnosis (1) Pre-eclampsia added to pre-existing hypertension: Code(s): O11.9 - Pre-existing hypertension with pre-eclampsia, unspecified trimester Status: Acute (2) delivery: Code(s): O60.10X0 - labor with delivery, unspecified trimester, not applicable or unspecified Status: Acute OB - DS: Summary Hospital Course Hospital Course: Pt was admitted for IOL due to cHTN with superimposed PreEclampsia. She delivered via the next day. Received magnesium sulfate for seizure prophylaxis. BPs were very good . She did have a hemorrhage of greater than 800cc, with a hemoglobin of 7.2 after, but was asymptomatic. OB Procedures : NST and PIH Mgmt OB Procedures Intrapartum: Spontaneous Vag Delivery OB Procedures: : None Peripartum Data Delivery Method: Natural Vaginal Laceration Description: Perineal - 2nd Degree Episiotomy description: None complications: uterine atony Status at Discharge Functional status at discharge: independent ambulation Time Spent with Patient Time attestation: Total time spent providing and/or coordinating discharge services: Exam Narrative: Exam Narrative: NAD abdomen soft, appropriately tender Ext non tender, 1+ edema DS: Data Data Completed and Pending Pending studies at discharge: Pending at discharge 11/08/20 11:27 Surgical [PTH] Routine Labs on day of discharge: Labs from last 24 hours 11/09/20 05:10 Blood Type O Negative Antibody Screen TNP Screen Negative Baby's Blood Type O pos Baby's JEANNIE Positive Doses of RhIg Required 1 Discharge Plan Discharge Attending physician on discharge: Lou Nieves Discharging Clinician: Lou Nieves Anticipated Discharge Date/Time: 11/10/20 16:00 Patient Disposition: Home, Self-Care Activity: may shower and pelvic rest Diet: as tolerated Patient Instructions: Antibiotic Form, How to Stop Smoking (GEN) Stand Alone Forms: General Discharge Information Follow-up/Referrals: Lou Nieves MD [Physician] - (1 week) Discharge Medications: New ibuprofen 600 mg Tablet 600 mg PO Q6H PRN (Reason: Cramping) Qty: 60 RF: 1 levothyroxine [Synthroid] 50 mcg Tablet 50 mcg PO DAILY@0630 Qty: 30 RF: 3 Continued polysaccharide iron complex 150 mg iron capsule 150 mg PO DAILY RF: 0 prenat.vits,cheri,khw-evhx-cnbqq Tablet 1 tablet PO DAILY RF: 0 labetalol 100 mg tablet 200 mg PO BID RF: 0 Discontinued aspirin 81 mg tablet,chewable 81 mg PO DAILY RF: 0 nifedipine 60 mg tablet extended release 60 mg PO DAILY RF: 0 Date of admission: 11/07/20 12:11 Primary Care Provider: UNKNOWN,DOCTOR Admitting Provider: Lou Nieves Attending physician on admission: Lou Nieves Condition: Stable
[2020-11-10 07:54] VITALS: BMI 79.4
[2020-11-10 09:07] VITALS: PULSE 84
[2020-11-10] MEDS: LABETALOL HCL 100 MG TABLET 200 MG PO ×2 (09:07→17:15)
[2020-11-10] MEDS: DOCUSATE SODIUM 100 MG CAPSULE PO ×3 (09:07→17:15)
[2020-11-10] MEDS: POLYSACCHARIDE IRON COMPLEX 150 MG CAPSULE PO ×2 (09:07→17:15)
[2020-11-10] MEDS: TETANUS,DIPHTHERIA,AC PERTUSSIS ADULT (0.5 ML) BOOSTRIX IM (13:53)
[2020-11-10 17:15] VITALS: PULSE 70
[2020-11-10] MEDS: IBUPROFEN 600 MG TABLET PO (17:15)
--- NOTE | 2020-11-10 18:15 | PC.NURSE ---
Self care instructions given to pt. including when to return for follow up visit date and time. Pt. verbalized understanding. FOB at side.
[2020-11-13 11:12] VITALS: BP 148/82; PULSE 83; RESP 18; TEMP 37.2; O2SAT 100
== END 2020-11-10 18:40 | disposition home or self-care (01) | DRG 560 ==
LOC: ANHLDR 11-08 12:29 → ANHOB2 11-08 14:29
PROVIDERS: Admitting Provider Obstetrics & Gynecology; Visit Provider Obstetrics & Gynecology
DX: O11.4 Pre-existing hypertension with pre-eclampsia, complicating childbirth (principal); Z37.0 Single live birth; Z3A.34 34 weeks gestation of pregnancy; O10.92 Unspecified pre-existing hypertension complicating childbirth; O69.81X0 Labor and delivery complicated by cord around neck, without compression, not applicable or unspecified; O70.1 Second degree perineal laceration during delivery; O72.1 Other immediate postpartum hemorrhage; O99.214 Obesity complicating childbirth; E66.01 Morbid (severe) obesity due to excess calories; O99.334 Smoking (tobacco) complicating childbirth; F17.210 Nicotine dependence, cigarettes, uncomplicated; O36.0930 Maternal care for other rhesus isoimmunization, third trimester, not applicable or unspecified
CPT/HCPCS: 36415; 80053; 80307; 81001; 84550; 85025; 85027; 85461; 86592; 86850; 86880; 86900; 86901; 86902; 87077; 87086; 87088; 87186; 88307; 90384; 90715; A9270; C9803; J0290; J0702; J2590; J2790; J2795; J3010; J3475; J7120; U0003; U0005

== ENCOUNTER 2020-11-15 15:53 | Inpatient (IN) | payer OTHER, SELFPAY ==
[2020-11-15] VITALS (10 sets, daily range): BP systolic 109–170; BP diastolic 66–115; PULSE 92–144; RESP 16–26; TEMP 36.2–39.2; O2SAT 99–100; BMI 33.0
--- NOTE | ~2020-11-15 | US_ITS ---
EXAMINATION: US pelvic complete EXAM DATE: 11/15/2020 17:13 INDICATION: Pelvic pain, fever, rule out retained products of conception. One week . TECHNIQUE: Pelvic transabdominal and transvaginal sonogram was performed. There are multiple graysca le and Doppler images available for interpretation. There is no prior study for comparison. FINDINGS: Uterus measures 12.0 x 8.9 x 7.0 cm, and is morphologically normal. Endometrial stripe me asures 22 mm, mildly thickened with mildly heterogeneous appearance. There is no free pelvic fluid. Right adnexa: The ovary measures 2.6 x 1.2 x 1.3 cm and is morphologically normal. Ovarian vascular f low confirmed. Left adnexa: The ovary measures 2.3 x 1.9 x 1.5 cm and is morphologically normal. Ovarian vascular fl ow confirmed. IMPRESSION: Mildly thickened endometrium at 2.2 cm (normal endometrium considered less fouzia n 2 cm and should decrease in thickness over time). Possible retained products of conception. Clinica l correlation. Reviewed, dictated and finalized at location A. IMPRESSION: Mildly thickened endometrium at 2.2 cm (normal endometri um considered less than 2 cm and should decrease in thickness over time). Possi ble retained products of conception. Clinical correlation.
--- NOTE | ~2020-11-15 | CT_ITS ---
EXAMINATION: CT abdomen pelvis wo con EXAM DATE: 11/15/2020 18:16 INDICATION: Flank pain, headache. Vaginal delivery 11/08/2020. TECHNIQUE: Spiral CT of the abdomen and pelvis was performed without contrast. Axial, coronal and sag ittal images were reviewed. The dose-length product (DLP) for this examination was 1375.24 mGy-cm. The exposure was tailored according to patient size (auto mA exposure control), and iterative reconst ruction (ASIR) was used as additional dose reduction technique. There is no prior study for comparis on. FINDINGS: Mild left hydronephrosis. Mild retroperitoneal nonspecific fat stranding, mostly along the right side, nonspecific but excluded upper urinary tract infection with urinalysis. Uterus is enlarge d consistent with status. The bladder is unremarkable. The liver, spleen, adrenal glands and pancreas are unremarkable. Gallbladder is unremarkable. No biliary obstruction. There is no r etroperitoneal or pelvic lymphadenopathy. The appendix is not positively visualized. There is no pericecal inflammatory change to suggest appe ndicitis. The stomach and small bowel are unremarkable. There is expected amount of colonic stool. No free intraperitoneal gas. The heart is normal in size. There are no pericardial or pleural e ffusions. The lung bases are unremarkable. Symmetric bilateral iliac sclerosis at the sacroiliac trini ints, chronic sacroiliitis. IMPRESSION: 1. Mild nonspecific retroperitoneal fat stranding. Check urinalysis to exclude possibility of upper urinary tract infection. 2. Mild left hydronephrosis probably from mass effect of uterus on the left ureter. 3. Chronic bilateral sacroiliitis. Reviewed, dictated and finalized at location A. IMPRESSION: 1. Mild nonspecific retroperitoneal fat stranding. Check urinalysis to exclude possibility of upper urinary tract infection. 2. Mild left hydronephrosis probably from mass effect of uterus on the left ur eter. 3. Chronic bilateral sacroiliitis.
[2020-11-15 16:32] LABS: Basophils Percent Auto 0.2 % (0.2-1.2); Eosinophils Absolute Auto 0.1 K/mm3 (0-0.3); Hematocrit 23.2 % (37.0-47.0); Hemoglobin 7.4 g/dL (12.0-15.0); Immature Granulocyte Absolute 0.07 K/mm3 (0.00-0.031); Immature Granulocyte Percent A 0.6 % (0-0.5); Lymphocytes Percent Auto 6.8 % (18.3-44.2); Mean Corpuscular HGB Conc 31.9 g/dl (32-36); Mean Corpuscular Hemoglobin 30.8 pg (26-34); Mean Corpuscular Volume 96.7 fl (80-100); Mean Platelet Volume 8.9 fl (7.4-10.4); Monocytes Absolute Auto 0.2 K/mm3 (0.1-0.6); Monocytes Percent Auto 1.6 % (2.6-8.5); Neutrophils Absolute Auto 10.5 K/mm3 (1.3-6.7); Neutrophils Percent Auto 89.8 % (45.5-73.1); Platelet Count Result 388 k/mm3 (150-375); Red Cell Distribution Width 12.4 % (11.5-14.5); White Blood Count 11.7 K/mm3 (4.5-10.0)
--- NOTE | 2020-11-15 16:47 | PC.NURSE ---
Pt off floor to US via cart
[2020-11-15 17:02] LABS: Lactic Acid Reflex 1.3 mmol/L (0.7-2.1)
[2020-11-15 17:03] LABS: Prothrombin Time 13.9 Seconds (11.1-14.7)
[2020-11-15 17:04] LABS: Partial Thromboplastin Time 29.1 SECONDS (22.3-36.8)
[2020-11-15 17:06] LABS: Alanine Aminotransferase 18 U/L (4-35); Albumin Level 3.8 g/dL (3.5-5.1); Alkaline Phosphatase 108 U/L (38-126); Anion Gap -1 mmol/L (8-16); Aspartate Amino Transferase 23 U/L (14-36); Bilirubin,Total 0.3 mg/dL (0.2-1.3); Blood Urea Nitrogen 29 mg/dL (7-17); Calcium 9.1 mg/dL (8.4-10.2); Carbon Dioxide 29 mmol/L (22-30); Chloride 111 mmol/L (98-107); Estimated CRCL calculation 47 ml/min; Estimated Glomerular Filt Rate 33; Glucose 93 mg/dL (65-105); Potassium 6.3 mmol/L (3.4-5.0); Sodium 139 mmol/L (137-145)
--- NOTE | 2020-11-15 17:08 | ECG_ITS ---
Measurements Intervals [place] Rate: 129 P: 41 PA: 126 QRS: 25 QRSD: 81 T: 54 QT: 260 QTc: 382 Interpretive Statements SINUS TACHYCARDIA BASELINE WANDER- V6 ABNORMAL ECG Electronically Signed On 11-15-2020 17:14:53 CDT by Tyrone Yan D.O.
[2020-11-15 17:16] LABS: Add Urine Microscopic? YES; Appearance Urine Cloudy (Clear); Bacteria Urine Trace /hpf; Bilirubin Urine Negative (Negative); Blood Urine 1+ (Negative); Color Urine Yellow (Yellow); Glucose Urine UA Negative (Negative); Ketones Urine Negative (Negative); Leukocyte Esterase Ur 3+ LEU/UL (Negative); Nitrate Urine Negative (Negative); Protein Urine 2+ mg/dL (Negative); Specific Grav Ur 1.011 (1.001-1.035); Urobilinogen Urine Negative mg/dL (<2.0); WBC Clumps Urine Present /HPF; WBC Urine >75 /hpf
[2020-11-15] MEDS: SODIUM CHLORIDE 0.9% IV 1,000 ML 999 ML IV CONT (17:32)
[2020-11-15 17:48] LABS: Magnesium 1.8 mg/dL (1.6-2.3); Phosphorus 4.2 mg/dL (2.5-4.5)
[2020-11-15] MEDS: CALCIUM GLUC 1,000 MG/NS 50 ML 1,000 MG/50 ML BAG 100 MG IVPB (17:48)
[2020-11-15] MEDS: INSULIN HUMAN REGULAR (*BKC) 100 UNITS/ML 10 UNITS IV PUSH (17:48)
[2020-11-15] MEDS: DEXTROSE 50% 25 GM/50 ML SYRINGE IV PUSH (17:49)
[2020-11-15] MEDS: MORPHINE SULFATE (*CRX) 4 MG/ML INJ IV PUSH (17:56)
[2020-11-15] MEDS: FAMOTIDINE 20 MG/2 ML VIAL IV PUSH (17:56)
[2020-11-15] MEDS: LORazepam INJ (*CRX) 2 MG/ML VIAL 0.5 MG IV PUSH (18:00)
--- NOTE | 2020-11-15 18:08 | PC.NURSE ---
Pt off floor to CT via cart
--- NOTE | 2020-11-15 18:31 | PC.NURSE ---
Pt resting on cart, states she feels more relaxed, non-labored respirations. HR down to 110's, BP 133/77, states headache has resolved, R flank pain 4/10.
--- NOTE | 2020-11-15 18:54 | ED.GENADULT ---
HPI - General Adult General Chief complaint: Recheck/Abnormal Lab/Rx Stated complaint: flank pain Time Seen by Provider: 11/15/20 16:40 Source: patient, RN notes reviewed and old records reviewed Mode of arrival: ambulatory Limitations: no limitations History of Present Illness HPI narrative: Patient is a 20-year-old female who presents to emergency department for evaluation of fever mid back pain that began today patient has been staying in the hospital with her who is currently still in the nursery. Patient delivered at 34 weeks secondary to preeclampsia. Patient is G1, P1. she had vaginal delivery November 08. Patient was delivered by Dr. Nieves. Patient has had a history of kidney disease followed by nephrology in [place]. Patient is currently on labetalol for preeclampsia 200 mg twice daily and has been compliant with her medications. Patient notes today when she left to go take care of some chores at home she experienced chills body aches and fever developed a fever with mid back pain and mild headache. Patient denied any source or exposures to explain her fever. Patient denies any vaginal bleeding discharge wounds or sores or URI symptoms. Patient on arrival to emergency department feels uncomfortable and has not taken anything for her symptoms other than her normal prescribed medications. Patient notes she was also prescribed ibuprofen for pain. Patient denies vomiting diarrhea or urinary symptoms. Related Data Home Medications Medication Instructions Recorded Confirmed polysaccharide iron complex 150 mg 150 mg PO DAILY 09/07/20 11/07/20 iron capsule prenat.vits,cheri,acy-eurk-yrapf 1 tablet PO DAILY 09/07/20 11/07/20 labetalol 200 mg PO BID 11/07/20 11/07/20 Allergies Allergy/AdvReac Type Severity Reaction Status Date / Time No Known Allergies Allergy Verified 11/07/20 12:34 Review of Systems Review of Systems: All systems reviewed & are unremarkable except as noted in HPI and below [facility] Past Medical History Medical History CKD (chronic kidney disease) stage 2, GFR 60-89 ml/min Heart disease Psychiatric diagnosis Rh incompatibility Family History Family History Father Acute myocardial infarction Social History Social History Smoking status: Current every day smoker Tobacco type: cigarettes Substance use: current Spiritual care concerns: No Exam Narrative: Exam Narrative: GENERAL: Ill-appearing, obese, uncomfortable and in no acute distress. HEAD: Normocephalic, atraumatic. EYES: PERRLA and EOMI. ENT: Nares clear, no rhinorrhea or epistaxis. Mucous membranes moist. NECK: Supple. No adenopathy or masses. CHEST: Clear to auscultation. No respiratory distress. No wheezes rales or rhonchi HEART: Regular rate and rhythm. No murmur heard. Normal peripheral pulses. ABDOMEN: Soft, nontender, nondistended EXTREMITIES: Normal range of motion. No edema. No CVA tenderness rash or wounds SKIN: Warm, dry, no rash. NEURO: No focal deficits. Alert and oriented x3. Cranial nerves II through XII grossly intact PSYCH: Normal mood and affect. Course Consultations Consultation #1: On arrival Dr. Negrete was contacted with gynecology OB who was made aware of the presentation of the patient. Case was discussed and recommended getting the pain under control will be given antibiotic for the urinary tract infection. Dr. Negrete was consulted back made aware of the ultrasound and CT imaging and the lab findings and the current condition of the patient patient's heart rate has improved her fever has broke her pressure is currently 133/77. Patient will be placed in the medical telemetry floor for her hyperkalemia and tachycardia. Vital Signs Vital signs: Vital Signs Temperature 100.1 F H 11/15/20 16:13 Pulse Rate 144 H 11/15/20 1
[2020-11-15] MEDS: SODIUM CHLORIDE 0.9% IV 1,000 ML 150 ML IV CONT (19:22)
--- NOTE | 2020-11-15 19:29 | PC.NURSE ---
called cristiano win @19:30, added bmp
[2020-11-15 19:56] LABS: Anion Gap 6 mmol/L (8-16); Blood Urea Nitrogen 28 mg/dL (7-17); Carbon Dioxide 22 mmol/L (22-30); Chloride 112 mmol/L (98-107); Estimated CRCL calculation 45 ml/min; Estimated Glomerular Filt Rate 31; Glucose 92 mg/dL (65-105); Potassium 6.3 mmol/L (3.4-5.0); Sodium 140 mmol/L (137-145)
[2020-11-15 20:06] LABS: Anion Gap 5 mmol/L (8-16); Blood Urea Nitrogen 27 mg/dL (7-17); Calcium 8.2 mg/dL (8.4-10.2); Carbon Dioxide 20 mmol/L (22-30); Chloride 114 mmol/L (98-107); Estimated CRCL calculation 47 ml/min; Estimated Glomerular Filt Rate 33; Glucose 94 mg/dL (65-105); Potassium 4.8 mmol/L (3.4-5.0); Sodium 139 mmol/L (137-145)
--- NOTE | 2020-11-15 21:27 | ADMGEN ---
This patient, Taylor Londono, was admitted to 3 Med Surg Room 326-01. Patient/family oriented to hospital policies and general routines including ID bracelet, bed and alarms, visiting hours, pain management, procedures, bathroom and other care routines, personal items, smoking policy, room service/diet, and visiting hours. Information on how to activate the Rapid Response Team has been discussed. Patient/Family are encouraged to report perceived risks to care and to ask questions if they do not understand what they are told or what they should do.
[2020-11-16] VITALS (9 sets, daily range): BP systolic 128–160; BP diastolic 72–99; PULSE 72–104; RESP 16–20; TEMP 36–37.1; O2SAT 98–100
[2020-11-16 06:27] LABS: Hematocrit 22.3 % (37.0-47.0); Hemoglobin 7.1 g/dL (12.0-15.0); Mean Corpuscular HGB Conc 31.8 g/dl (32-36); Mean Corpuscular Hemoglobin 31.4 pg (26-34); Mean Corpuscular Volume 98.7 fl (80-100); Mean Platelet Volume 9.1 fl (7.4-10.4); Platelet Count Result 411 k/mm3 (150-375); Red Blood Count 2.26 M/mm3 (4.2-5.4); Red Cell Distribution Width 12.4 % (11.5-14.5)
[2020-11-16 06:44] LABS: Anion Gap 4 mmol/L (8-16); Blood Urea Nitrogen 27 mg/dL (7-17); Calcium 8.6 mg/dL (8.4-10.2); Carbon Dioxide 21 mmol/L (22-30); Chloride 114 mmol/L (98-107); Estimated CRCL calculation 43 ml/min; Estimated Glomerular Filt Rate 31; Glucose 99 mg/dL (65-105); Potassium 6.1 mmol/L (3.4-5.0); Sodium 139 mmol/L (137-145)
[2020-11-16 07:44] LABS: Eosinophils Absolute Manual 0.26 K/mm3 (0.02-0.5); Eosinophils Percent Manual 1 % (0-4); Hypochromasia 2+ (NORMAL); Lymphocytes Absolute Manual 2.86 K/mm3 (1.1-4.5); Monocytes Absolute Manual 0.52 K/mm3 (0.1-0.90); Monocytes Percent Manual 2 % (3-9); Neutrophils Percent Manual 86 % (46-73); Platelet Estimate Adequate (Adequate); Total Cells Counted 100
[2020-11-16 07:45] LABS: Anisocytosis 1+ (NORMAL)
--- NOTE | 2020-11-16 07:58 | ECG_ITS ---
Measurements Intervals Simpson Rate: 90 P: 43 IN: 134 QRS: 26 QRSD: 87 T: 55 QT: 336 QTc: 412 Interpretive Statements SINUS RHYTHM NORMAL ECG Electronically Signed On 11-16-2020 8:35:51 CDT by Tyrone Yan D.O.
--- NOTE | 2020-11-16 08:07 | PM.IMCN ---
Assessment and Plan Assessment and plan (1) Acute hyperkalemia: Code(s): E87.5 - Hyperkalemia Status: Acute Assessment and Plan: Potassium 6.1 today. Elevated potassium most likely related to her CKD and metabolic acidosis. Will order stat EKG. Give bicarb and calcium. Will also give a dose of Kayexalate. Will place on a bicarb drip as well. Repeat potassium later today. Continue telemetry. Low-potassium diet (2) Sepsis: Code(s): A41.9 - Sepsis, unspecified organism Status: Acute Assessment and Plan: Present on admission with fever, tachycardia and leukocytosis. Related to the pyelonephritis. White count is worse today but fever curve has improved. Will continue Rocephin for now. Follow up on urine cultures. Check blood cultures. (3) Pyelonephritis: Code(s): N12 - Tubulo-interstitial nephritis, not specified as acute or chronic Status: Acute Assessment and Plan: CT scan showing bilateral right greater than left renal fat stranding. Pain is localized to the right side. She does have mild left hydronephrosis related to the enlarged uterus. Hopefully this will not cause an obstructive uropathy. Follow up on urine culture results. Continue Rocephin for now. Urology consult if she begins to have left sided symptoms of her condition worsens. (4) Acute kidney injury superimposed on chronic kidney disease: Code(s): N17.9 - Acute kidney failure, unspecified; N18.9 - Chronic kidney disease, unspecified Status: Acute Assessment and Plan: Patient states that she has CKD stage 2. Baseline creatinine here runs 1.4-1.8. Creatinine on admission was 1.9 and has climbed to 2.0. Bicarb has dropped to 21 which could be contributing to the recurrent hyperkalemia. Acute kidney injury could be related to the ibuprofen as well as the sepsis/pyelonephritis. Will start normal saline as well as D5 W with bicarb. Continue monitor renal function and electrolytes closely. Consider nephrology consult if does not improve as expected. (5) Anemia: Code(s): D64.9 - Anemia, unspecified Status: Acute Assessment and Plan: Hemoglobin mostly in the 9 range during her but dropped to 7.2 . Hemoglobin about the same on this admission. She is on a multivitamin and iron replacement. Will continue these. (6) HTN (hypertension), benign: Code(s): I10 - Essential (primary) hypertension Status: Acute Assessment and Plan: Blood pressure better controlled since admission. Systolic blood pressure did drop to 109 which could contribute to worsening renal function. Will hold labetalol at this time and resume when her blood pressure becomes higher. Continue to monitor blood pressure closely. (7) Tobacco abuse: Code(s): Z72.0 - Tobacco use Status: Acute Assessment and Plan: Patient was educated about the benefits of smoking cessation. (8) Cannabis abuse, daily use: Code(s): F12.10 - Cannabis abuse, uncomplicated Status: Acute Assessment and Plan: Patient was educated about the benefits abstain from marijuana use. (9) Hypothyroidism: Code(s): E03.9 - Hypothyroidism, unspecified Status: Acute Assessment and Plan: No TSH listed here. She is on Synthroid 50 mcg daily. Unclear if this is the adjusted dose due to her or this is her baseline level. Will check thyroid panel. (10) DVT prophylaxis: Code(s): Z29.9 - Encounter for prophylactic measures, unspecified Status: Acute Assessment and Plan: scd HPI Data of Consult Consult date: 11/18/20 Requesting Physician: Letitia Negrete MD Primary Care Provider: UNKNOWN,DOCTOR PATIENT IS ADMITTED UNDER OBSERVATION Consult Narrative Reason for consult: Hyperkalemia Narrative: Taylor Londono is a 20 year old female 9 days with hx of CKD who presents
--- NOTE | 2020-11-16 08:10 | PM.IMHP ---
H&P: HPI History of Present Illness Date/Time: 11/16/20 08:10 This patient is a 20-year-old multiparous female who is 8 days from a vaginal who presented to the emergency department with flank pain, fever, elevated blood pressures. After administration of antibiotics and pain medication her blood pressures improved. Her liver function tests were normal. However, there was elevated potassium and elevated creatinine. She continues to have flank pain. She denies feeling feverish. She denies headache, blurry vision, epigastric pain. She denies any worsening swelling. Chief Complaint: Fever, flank pain Review of Systems Constitutional: Constitutional: Reports no additional constitutional complaints, Denies fatigue, Denies headache(s), Denies lethargy and Denies weakness Eyes: Eyes: Reports no additional eye complaints, Denies blurry vision and Denies photophobia ENT: Reports as per HPI, Denies headache(s) and Denies neck pain Cardiovascular: Cardiovascular: Denies chest pain, Denies diaphoresis, Denies leg edema, Denies palpitations and Denies dyspnea Respiratory: Respiratory: Denies hemoptysis, Denies dyspnea and Denies wheezing Gastrointestinal: Gastrointestinal: Denies abdominal pain, Denies melena, Denies bloating, Denies hematochezia, Denies nausea and Denies vomiting Genitourinary: Genitourinary: Reports no additional female genitourinary complaints Musculoskeletal: Musculoskeletal: Denies joint swelling, Denies neck pain, Denies numbness and Denies stiffness Neurologic: Denies Abnormal speech present, Denies confusion, Denies headache(s), Denies numbness and Denies weakness Psychiatric: Psychiatric: Denies anxiety, Denies confusion, Denies depression, Denies homicidal ideation and Denies suicidal ideation Endocrine: Endocrine: Denies fatigue and Denies palpitations Allergic/Immunologic: Allergic/Immunologic: Denies wheezing PMFSH Past Medical History Medical History CKD (chronic kidney disease) stage 2, GFR 60-89 ml/min Heart disease Psychiatric diagnosis Rh incompatibility Family History Family History (Updated 11/15/20 @ 21:35 by Haydee Gordon RN) Father Acute myocardial infarction Heart disease Other Heart disease Thyroid disease Grandparent Heart disease Grandparent Kidney disease Other Kidney disease Mother Thyroid disease Social History Social History Smoking status: Light tobacco smoker Tobacco type: cigarettes Alcohol intake: former Substance use: current Substance use type: marijuana Gender identity (if verbalized by the patient): Female Spiritual care concerns: No Meds Home Medications and Allergies Home Medications Medication Instructions Recorded Confirmed Type polysaccharide iron complex 150 mg 150 mg PO DAILY 09/07/20 11/15/20 History iron capsule prenat.vits,cheri,[id number] 1 tablet PO DAILY 09/07/20 11/15/20 History labetalol 200 mg PO BID 11/07/20 11/15/20 History ibuprofen 600 mg PO Q6H PRN #60 tablet 11/10/20 11/15/20 Rx levothyroxine [Synthroid] 50 mcg PO DAILY@0630 #30 tablet 11/10/20 11/15/20 Rx Allergies Allergy/AdvReac Type Severity Reaction Status Date / Time No Known Allergies Allergy Verified 11/07/20 12:34 Vital Signs Vital Signs - 24 hr 11/15/20 16:13 11/15/20 17:15 11/15/20 17:55 Temperature 100.1 F H 102.6 F H Pulse Rate 144 H 130 H 127 H Respiratory Rate 24 H 21 H 22 H Blood Pressure 170/107 H 159/115 H 141/85 H Pulse Oximetry 100 100 99 11/15/20 18:32 11/15/20 18:50 11/15/20 19:34 Temperature 100.9 F H 99.8 F H 97.9 F Pulse Rate 115 H 126 H Respiratory Rate 23 H 26 H Blood Pressure 133/77 117/66 Pulse Oximetry 99 100 11/15/20 20:47 11/15/20 21:20 11/15/20 22:05 Temperature 97.6 F Pulse Rate 114 H 106 H 115 H Respiratory Rate 19 16 Blood Pressure 109/74 125/
[2020-11-16] MEDS: SODIUM POLYSTYRENE SULFONONATE 15 GM/60 ML BTL 30 GM PO (08:34)
[2020-11-16] MEDS: SODIUM CHLORIDE 0.9% IV 1,000 ML 50 ML IV CONT (08:36)
[2020-11-16] MEDS: CALCIUM GLUCONATE 1,000 MG/10 ML VIAL 1000 MG IV PUSH ×2 (08:40→11:47)
[2020-11-16] MEDS: SODIUM BICARBONATE 8.4% 100 MEQ in DEXTROSE 5% 1,000 ML 1,000 ML 50 MEQ IV CONT (08:48)
[2020-11-16] MEDS: SODIUM BICARBONATE 8.4% 50 MEQ/50 ML VIAL IV PUSH (08:56)
[2020-11-16 10:22] LABS: Potassium 6.1 mmol/L (3.4-5.0)
[2020-11-16] MEDS: SODIUM BICARBONATE 8.4% 50 MEQ/50 ML SYRINGE IV PUSH (11:42)
[2020-11-16] MEDS: FAMOTIDINE 20 MG/2 ML VIAL IV PUSH ×2 (11:47→21:07)
--- NOTE | 2020-11-16 13:08 | PM.OBPRVD ---
OB - Delivery Note Procedure Delivery date: 11/16/20 Procedure: Intrapartal events: None Induction method: AROM and per misoprostol protocol Delivery monitor: external FHT and external uterine Route of delivery: Episiotomy description: Midline Laceration Description: Vaginal - 2nd Degree Delivery repair: vicryl Specimen: No Quantitative Blood Loss (ml): 212 Anesthesia type: Epidural Baby Date of : 11/16/20 Weeks of gestation at delivery: 39 Infant gender: Female Weight (pounds): 5 Weight (ounces): 1 presentation: vertex score one minute: 9 score five minutes: 9
[2020-11-16 14:00] LABS: Anion Gap 5 mmol/L (8-16); Blood Urea Nitrogen 27 mg/dL (7-17); Calcium 9.3 mg/dL (8.4-10.2); Carbon Dioxide 24 mmol/L (22-30); Chloride 111 mmol/L (98-107); Estimated CRCL calculation 46 ml/min; Estimated Glomerular Filt Rate 33; Glucose 85 mg/dL (65-105); Potassium 5.3 mmol/L (3.4-5.0); Sodium 140 mmol/L (137-145)
[2020-11-16 19:39] LABS: Potassium 5.5 mmol/L (3.4-5.0)
[2020-11-16] MEDS: ACETAMINOPHEN 325 MG TABLET 650 MG PO (21:02)
[2020-11-16] MEDS: SODIUM POLYSTYRENE SULFONONATE 15 GM/60 ML BTL PO (21:03)
[2020-11-16] MEDS: LABETALOL HCL 100 MG TABLET PO (22:50)
[2020-11-16] MEDS: traMADol HCL (*CRX) 50 MG TABLET PO (22:50)
[2020-11-17] VITALS (15 sets, daily range): BP systolic 154–190; BP diastolic 88–114; PULSE 72–117; RESP 14–20; TEMP 36.9–37.5; O2SAT 94–99
[2020-11-17] MEDS: SODIUM BICARBONATE 8.4% 100 MEQ in DEXTROSE 5% 1,000 ML 1,000 ML 50 MEQ IV CONT ×2 (04:06→23:11)
[2020-11-17] MEDS: SODIUM CHLORIDE 0.9% IV 1,000 ML 50 ML IV CONT ×2 (04:07→23:12)
[2020-11-17] MEDS: LEVOTHYROXINE SODIUM 50 MCG TABLET PO (06:23)
[2020-11-17 07:11] LABS: Basophils Absolute Auto 0.1 K/mm3 (0.0-0.1); Basophils Percent Auto 0.5 % (0.2-1.2); Eosinophils Absolute Auto 0.2 K/mm3 (0-0.3); Eosinophils Percent Auto 1.4 % (0-4.4); Immature Granulocyte Absolute 0.06 K/mm3 (0.00-0.031); Immature Granulocyte Percent A 0.5 % (0-0.5); Lymphocytes Absolute Auto 1.49 K/mm3 (0.9-3.2); Lymphocytes Percent Auto 13.4 % (18.3-44.2); Mean Corpuscular HGB Conc 31.6 g/dl (32-36); Mean Corpuscular Hemoglobin 30.2 pg (26-34); Mean Corpuscular Volume 95.6 fl (80-100); Mean Platelet Volume 9.3 fl (7.4-10.4); Monocytes Absolute Auto 0.8 K/mm3 (0.1-0.6); Monocytes Percent Auto 7.5 % (2.6-8.5); Neutrophils Absolute Auto 8.5 K/mm3 (1.3-6.7); Neutrophils Percent Auto 76.7 % (45.5-73.1); Platelet Count Result 275 k/mm3 (150-375); Red Blood Count 2.05 M/mm3 (4.2-5.4); Red Cell Distribution Width 12.2 % (11.5-14.5); White Blood Count 11.1 K/mm3 (4.5-10.0)
[2020-11-17 07:34] LABS: Hematocrit 19.6 % (37.0-47.0); Hemoglobin 6.2 g/dL (12.0-15.0)
[2020-11-17 08:10] LABS: Hepatitis B Surface Antigen Negative (Negative)
--- NOTE | 2020-11-17 08:12 | PM.GYNPNOP ---
TRAVELING REPAIR ACCOUNTANT - A/P Postoperative Procedures: Blood transfusion 2 units today for severe anemia, likely contributing to creatinine elevated above baseline potassium improving, continue bicarb drip per medicine needs to restart BP meds, will allow medicine to choose agents best for CKD. Pt will ask nursery nurse to video chat baby today. Blood cultures pending, continue rocephin for pyelo Appreciate medicine involvement. Discussed POC with pt, Dr Negrete, and RN. Time Spent With Patient Time: Total time spent is greater than 50% in coordination of care (as documented) at patient's floor/unit and/or counseling patient: Time with patient: less than 15 minutes TRAVELING REPAIR ACCOUNTANT- PN:Subj Post-Op Subjective Date/time seen: 11/17/20 08:12 Interval history: Taylor is very sad to not be seeing her baby. Otherwise, feeling a little better. Review of Systems Review of Systems: All systems reviewed & are unremarkable except as noted in HPI and below (HPI) Exam Const: General: comfortable Other: tearful Cardio: Rate: regular rate Rhythm: regular rhythm GI: GI Palp: Yes Soft to palpation Auscultation: normal bowel sounds Neuro: General: oriented to person, oriented to place, oriented to time and moves all extremities Psych: Affect: Sad affect present TRAVELING REPAIR ACCOUNTANT - PN: Obj Data Vital Signs Vital Signs: Vital Signs - 24 hr 11/16/20 12:00 11/16/20 16:00 11/16/20 20:00 Temperature 97.4 F L 96.8 F L 98.8 F Pulse Rate 85 85 104 H Respiratory Rate 20 20 16 Blood Pressure 147/86 H 151/83 H 148/95 H Pulse Oximetry 100 100 100 11/16/20 21:33 11/16/20 22:50 11/16/20 23:45 Temperature 98.8 F Pulse Rate 90 72 84 Respiratory Rate 18 18 Blood Pressure 160/99 H Pulse Oximetry 98 99 11/17/20 00:00 11/17/20 03:59 11/17/20 04:00 Temperature 98.5 F Pulse Rate 96 90 110 H Respiratory Rate 14 Blood Pressure 154/104 H Pulse Oximetry 99 11/17/20 07:46 Temperature 98.7 F Pulse Rate 87 Respiratory Rate 16 Blood Pressure 172/97 H Pulse Oximetry 97 Intake/Output Intake/Output: Intake & Output 11/14/20 11/15/20 11/16/20 11/17/20 23:59 23:59 23:59 23:59 Intake Total 1250 2271 2400 Output Total 1950 Balance 5661 139 9774 Meds/Results Medications: Active Medications Generic Name Dose Route Start Last Admin Trade Name Freq PRN Reason Stop Dose Admin Acetaminophen 650 mg 11/16/20 20:53 11/16/20 21:02 Acetaminophen 325 Mg Tablet PO 650 mg Q6H PRN Administration Mild Pain (1-3) or Fever Famotidine 20 mg 11/16/20 09:00 11/16/20 21:07 Famotidine 20 Mg/2 Ml Vial IV PUSH 20 mg Q12HR EMELI Administration Ceftriaxone Sodium/Dextrose 1 gm in 50 mls @ 100 mls/hr 11/15/20 21:00 11/16/20 21:32 Rocephin 1 Gm/D5w 50 Ml IVPB Infused HS EMELI Infusion Sodium Bicarbonate 100 meq/ 1,100 mls @ 50 mls/hr 11/16/20 08:05 11/17/20 04:06 Dextrose IV CONT 50 mls/hr .Q22H EMELI Administration Sodium Chloride 1,000 mls @ 50 mls/hr 11/16/20 08:05 11/17/20 04:07 Normal Saline Iv IV CONT 50 mls/hr .Q20H EMELI Administration Levothyroxine Sodium 50 mcg 11/17/20 06:30 11/17/20 06:23 Levothyroxine Sodium 50 Mcg Tablet PO 50 mcg DAILY@0630 EMELI Administration Ondansetron HCl 8 mg 11/15/20 23:20 Ondansetron Inj 4 Mg/2 Ml Vial IV PUSH Q6H PRN Nausea Polysaccharide Iron Complex 150 mg 11/17/20 09:00 Polysaccharide Iron Complex 150 Mg Capsule PO DAILY [facility] Radiology Results: ITS Impressions Pelvis Ultrasound 11/15/20 17:23 IMPRESSION: Mildly thickened endometrium at 2.2 cm (normal endometrium considered less than 2 cm and should decrease in thickness over time). Possible retained products of conception. Clinical correlation. Abdomen/Pelvis CT 11/15/20 18:19 IMPRESSION: 1. Mild nonspecific retroperitoneal fat stranding. Check urinalysis to exclude possibility of upper urinary tract infection. 2. Mild left hydronephrosis probably from mass eff
[2020-11-17 08:27] LABS: Hepatitis B Surface Anti Res Negative; Hepatitis C Virus Antibody Negative (Negative)
[2020-11-17] MEDS: ACETAMINOPHEN 325 MG TABLET 650 MG PO ×3 (08:35→22:30)
[2020-11-17] MEDS: POLYSACCHARIDE IRON COMPLEX 150 MG CAPSULE PO (08:37)
[2020-11-17] MEDS: FAMOTIDINE 20 MG/2 ML VIAL IV PUSH ×2 (08:37→21:07)
[2020-11-17] MEDS: LABETALOL HCL 100 MG TABLET PO (10:40)
[2020-11-17 10:47] LABS: Complement C3 104 mg/dL (88-165)
[2020-11-17 11:01] LABS: Alanine Aminotransferase 14 U/L (4-35); Albumin Level 3.1 g/dL (3.5-5.1); Alkaline Phosphatase 87 U/L (38-126); Anion Gap 7 mmol/L (8-16); Aspartate Amino Transferase 15 U/L (14-36); Bilirubin,Total < 0.1 mg/dL (0.2-1.3); Blood Urea Nitrogen 25 mg/dL (7-17); Calcium 8.6 mg/dL (8.4-10.2); Carbon Dioxide 22 mmol/L (22-30); Chloride 112 mmol/L (98-107); Estimated CRCL calculation 48 ml/min; Estimated Glomerular Filt Rate 36; Glucose 99 mg/dL (65-105); Magnesium 1.8 mg/dL (1.6-2.3); Phosphorus 5.7 mg/dL (2.5-4.5); Potassium 4.7 mmol/L (3.4-5.0); Sodium 141 mmol/L (137-145)
--- NOTE | 2020-11-17 12:20 | PM.IMPN ---
Progress Note: A&P Assessment and Plan (1) Acute hyperkalemia: Code(s): E87.5 - Hyperkalemia Status: Acute Assessment and Plan: Potassium 6.3 on admission and treated approrpiately in the ED. Potassium 6.1 yesterday and eventually improved with appropriate treatment. Potassium down to 4.7 today. Acidosis better. Elevated potassium most likely related to her CKD and metabolic acidosis. Continue low-potassium diet. Okay to stop tele. Add oral bicarb. (2) Sepsis: Code(s): A41.9 - Sepsis, unspecified organism Status: Acute Assessment and Plan: Present on admission with fever, tachycardia and leukocytosis. Related to the pyelonephritis. White count was 11.7K but junped to 26K yesterday. WBC better today at 11K. Fever curve improved. UCx growing EColi sensitive to Rocephin. Continue Rocephin. (3) Pyelonephritis: Code(s): N12 - Tubulo-interstitial nephritis, not specified as acute or chronic Status: Acute Assessment and Plan: CT scan showing bilateral right greater than left renal fat stranding. Pain is localized to the right side but improving. She does have mild left hydronephrosis related to the enlarged uterus. Hopefully this will not cause an obstructive uropathy. Urine culture growing EColi sensitive to Rocephin. BCx NGTD. Continue Rocephin. Urology consult if she begins to have left sided symptoms or her condition worsens. (4) Acute kidney injury superimposed on chronic kidney disease: Code(s): N17.9 - Acute kidney failure, unspecified; N18.9 - Chronic kidney disease, unspecified Status: Acute Assessment and Plan: Patient states that she has CKD stage 2. Baseline creatinine here runs 1.4-1.8. Creatinine on admission was 1.9 and climbed to 2.0. Bicarb has dropped to 21 which could be contributing to the recurrent hyperkalemia. Acute kidney injury could be related to the ibuprofen as well as the sepsis/pyelonephritis. Started on IV fluids with bicarb. Acidosis better and Cr down to 1.8. Continue monitor renal function and electrolytes closely. Add oral bicarb. (5) Anemia: Code(s): D64.9 - Anemia, unspecified Status: Acute Assessment and Plan: Hemoglobin mostly in the 9 range during her but dropped to 7.2 (OB delivery note EBL 806mL). Hemoglobin about the same on this admission but dropped to 6.2 probably related to the IVF. Continue multivitamin and iron replacement. Transfuse 1U PRBC. Will continue to follow. (6) HTN (hypertension), benign: Code(s): I10 - Essential (primary) hypertension Status: Acute Assessment and Plan: Systolic blood pressure did drop to 109 which could contribute to worsening renal function so labetalol was held initially. Blood pressure climbed overnight and she was given one dose of Labetolol. Will resume her Labetolol at half dose (100mg BID) and continue to monitor. 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 (7) Tobacco abuse: Code(s): Z72.0 - Tobacco use Status: Acute Assessment and Plan: Patient was educated about the benefits of smoking cessation. (8) Cannabis abuse, daily use: Code(s): F12.10 - Cannabis abuse, uncomplicated Status: Acute Assessment and Plan: Patient was educated about the benefits abstain from marijuana use. (9) Hypothyroidism: Code(s): E03.9 - Hypothyroidism, unspecified Status: Acute Assessment and Plan: She is on Synthroid 50 mcg daily. Unclear if this is the adjusted dose due to her or this is her baseline level. TSH normal here. Continue currnt dose of Synthroid (10) DVT prophylaxis: Code(s): Z29.9 - Encounter for prophylactic measures, unspecified Status: Acute Assessment and Plan: SCDs Subjective Date/time seen: 11/17/20 12:20 Interval history: 20yo female
[2020-11-17] MEDS: SODIUM CHLORIDE 0.9% IV 250 ML 30 ML IV CONT (15:30)
[2020-11-17] MEDS: TUBING, BLOOD PLUM PUMP TUBING 1 EACH XX (15:33)
[2020-11-17] MEDS: SODIUM BICARBONATE TAB 650 MG TABLET PO ×2 (15:33→16:17)
[2020-11-17] MEDS: amLODIPine BESYLATE 5 MG TABLET 10 MG PO (16:17)
[2020-11-17] MEDS: LABETALOL HCL 100 MG TABLET 200 MG PO (21:08)
[2020-11-18] VITALS: BP 155/86; PULSE 84; RESP 18; TEMP 37.7; O2SAT 97
[2020-11-18 04:00] VITALS: BP 145/103; PULSE 80; RESP 18; TEMP 37.6; O2SAT 94
[2020-11-18] MEDS: LEVOTHYROXINE SODIUM 50 MCG TABLET PO (05:54)
[2020-11-18] MEDS: ACETAMINOPHEN 325 MG TABLET 650 MG PO (05:54)
[2020-11-18 06:30] LABS: Hematocrit 21.9 % (37.0-47.0); Hemoglobin 7.2 g/dL (12.0-15.0); Mean Corpuscular HGB Conc 32.9 g/dl (32-36); Mean Corpuscular Hemoglobin 29.9 pg (26-34); Mean Corpuscular Volume 90.9 fl (80-100); Platelet Count Result 302 k/mm3 (150-375); Red Blood Count 2.41 M/mm3 (4.2-5.4); Red Cell Distribution Width 12.7 % (11.5-14.5); White Blood Count 10.7 K/mm3 (4.5-10.0)
[2020-11-18 06:42] LABS: Albumin Level 3.1 g/dL (3.5-5.1); Anion Gap 3 mmol/L (8-16); Blood Urea Nitrogen 20 mg/dL (7-17); Calcium 8.8 mg/dL (8.4-10.2); Carbon Dioxide 28 mmol/L (22-30); Chloride 107 mmol/L (98-107); Estimated CRCL calculation 46 ml/min; Estimated Glomerular Filt Rate 33; Glucose 99 mg/dL (65-105); Phosphorus 4.9 mg/dL (2.5-4.5); Potassium 4.5 mmol/L (3.4-5.0); Sodium 138 mmol/L (137-145)
[2020-11-18 08:00] VITALS: BP 180/96; PULSE 81; RESP 16; TEMP 36.3; O2SAT 96
[2020-11-18 09:08] VITALS: PULSE 92
[2020-11-18] MEDS: LABETALOL HCL 100 MG TABLET 200 MG PO (09:08)
[2020-11-18] MEDS: SODIUM BICARBONATE TAB 650 MG TABLET PO (09:08)
[2020-11-18] MEDS: amLODIPine BESYLATE 5 MG TABLET PO (09:10)
[2020-11-18] MEDS: POLYSACCHARIDE IRON COMPLEX 150 MG CAPSULE PO (09:10)
[2020-11-18] MEDS: FAMOTIDINE 20 MG/2 ML VIAL IV PUSH (09:10)
--- NOTE | 2020-11-18 09:54 | PM.IMPN ---
Progress Note: A&P Assessment and Plan (1) Acute hyperkalemia: Code(s): E87.5 - Hyperkalemia Status: Acute Assessment and Plan: Potassium 6.3 on admission and treated appropriately in the ED. Potassium 6.1 yesterday and eventually improved with appropriate treatment. Potassium stable at 4.5 today. Acidosis better. Elevated potassium most likely related to her CKD and metabolic acidosis. Continue low-potassium diet. Repeat potassium and if normal, okay for discharge. Repeat potassium 4.6. Okay for discharge from medical standpoint. (2) Sepsis: Code(s): A41.9 - Sepsis, unspecified organism Status: Acute Assessment and Plan: Present on admission with fever, tachycardia and leukocytosis. Related to the pyelonephritis. White count was 11.7K but jumped to 26K. WBC better today at 10.7K. Fever resolved. UCx growing EColi sensitive to Rocephin. Continue Rocephin. (3) Pyelonephritis: Code(s): N12 - Tubulo-interstitial nephritis, not specified as acute or chronic Status: Acute Assessment and Plan: CT scan without contrast showing bilateral right greater than left renal fat stranding. Pain is localized to the right side but improving. She does have mild left hydronephrosis related to the enlarged uterus. Hopefully this will not cause an obstructive uropathy. Urine culture growing EColi sensitive to Rocephin. BCx NGTD. Continue Rocephin. Urology consult if she begins to have left sided symptoms or her condition worsens. (4) Acute kidney injury superimposed on chronic kidney disease: Code(s): N17.9 - Acute kidney failure, unspecified; N18.9 - Chronic kidney disease, unspecified Status: Acute Assessment and Plan: Patient states that she has CKD stage 2. Baseline creatinine here runs 1.4-1.8. Creatinine on admission was 1.9 and climbed to 2.0. Serum Bicarb dropped to 21 which could be contributing to the recurrent hyperkalemia. Acute kidney injury could be related to the ibuprofen as well as the sepsis/pyelonephritis. Started on IV fluids with bicarb. Serum bicarb improved to 28 but Cr stable at 1.9. Continue monitor renal function and electrolytes closely. Stop IV fluids. Continue oral bicarb. (5) Anemia: Code(s): D64.9 - Anemia, unspecified Status: Acute Assessment and Plan: Hemoglobin mostly in the 9 range during her but dropped to 7.2 (OB delivery note EBL 806mL). Hemoglobin about the same on this admission but dropped to 6.2 probably related to the IVF. She received 1U PRBC. Hgb better at 7.2. Continue multivitamin and iron replacement. (6) HTN (hypertension), benign: Code(s): I10 - Essential (primary) hypertension Status: Acute Assessment and Plan: Systolic blood pressure 170 on admission but did drop to 109 (without anti-HTN meds) which could have contributed to worsening renal function so labetalol was held initially. Blood pressure climbed and she was given one dose of Labetalol. We resumed her Labetalol at half dose (100mg BID) but BP remained elevated so dose increased back to home dose of 200mg BID. Norvasc 5mg added as well. Encouraged her to have a low sodium diet and information ruth be provided by RN. Discussed with the air turning machine feeder environmental solutions engineer today and reviewed hospital course and followup plan with that provider. Patient encouraged to keep followup appointment with her air turning machine feeder. (7) Tobacco abuse: Code(s): Z72.0 - Tobacco use Status: Acute Assessment and Plan: Patient was educated about the benefits of smoking cessation. (8) Cannabis abuse, daily use: Code(s): F12.10 - Cannabis abuse, uncomplicated Status: Acute Assessment and Plan: Patient was educated about the benefits abstain from marijuana use. (9) Hypothyroidism: Code(s): E03.9 - Hypothyroidism, unspecified Status: Acute Assessm
[2020-11-18 11:18] LABS: Potassium 4.6 mmol/L (3.4-5.0)
[2020-11-18 12:00] VITALS: BP 176/100; PULSE 91; RESP 22; TEMP 36.3; O2SAT 97
--- NOTE | 2020-11-18 12:48 | PM.GYNPNOP ---
EMPLOYEE DEVELOPMENT DIRECTOR - A/P Assessment and plan (1) Pyelonephritis: Code(s): N12 - Tubulo-interstitial nephritis, not specified as acute or chronic Status: Acute Assessment and Plan: This patient is a 20-year-old female who is about 8 days from a vaginal . She developed pyelonephritis. This worsened her existing kidney disease. She has been treated for hyperkalemia and acute mild kidney failure. Internal medicine has worked on these issues and have them resolved at this time. Her pyelonephritis is improved. Her culture showed E coli that is sensitive to ciprofloxacin. She will prescribe ciprofloxacin to take for the next 10 days. She will be discharged and she will follow up in about 4 days. (2) HTN (hypertension), benign: Code(s): I10 - Essential (primary) hypertension Status: Acute (3) Acute kidney injury superimposed on chronic kidney disease: Code(s): N17.9 - Acute kidney failure, unspecified; N18.9 - Chronic kidney disease, unspecified Status: Acute Postoperative Postoperative day: 1 Postoperative status: doing well Postoperative plan: see orders Time Spent With Patient Time: Total time spent is greater than 50% in coordination of care (as documented) at patient's floor/unit and/or counseling patient: Time with patient: 15 - 25 minutes EMPLOYEE DEVELOPMENT DIRECTOR- PN:Subj Post-Op Subjective Date/time seen: 11/18/20 12:48 Interval history: 20yo female Day 9 with HTN and CKD here for back pain and fevers and found to have sepsis from pyelonephritis. No further back pain. Slight headache. No n/v. Subjective: patient reports feeling better, patient has no complaints, patient desires discharge, pain is well controlled and patient is tolerating oral intake Exam Const: General: healthy appearing, comfortable and no acute distress Resp: Auscultation: clear to auscultation bilaterally, no rales, no rhonchi and no wheezes Cardio: Rate: regular rate Heart sounds: no click, no murmurs and no rubs GI: Inspection: non-distended Auscultation: normal bowel sounds Extrem: General: normal to inspection, no pedal edema and no calf tenderness EMPLOYEE DEVELOPMENT DIRECTOR - PN: Obj Data Vital Signs Vital Signs: Vital Signs - 24 hr 11/17/20 15:28 11/17/20 15:45 11/17/20 16:45 Temperature 98.4 F 99.5 F 99.3 F Pulse Rate 79 84 80 Respiratory Rate 18 20 16 Blood Pressure 179/112 H 190/110 H 161/101 H Pulse Oximetry 98 96 94 11/17/20 17:45 11/17/20 18:45 11/17/20 20:00 Temperature 98.8 F 98.9 F 99.1 F Pulse Rate 84 87 89 Respiratory Rate 18 20 16 Blood Pressure 173/104 H 181/114 H 187/107 H Pulse Oximetry 96 96 98 11/17/20 21:08 11/18/20 00:00 11/18/20 04:00 Temperature 99.8 F H 99.7 F H Pulse Rate 82 84 80 Respiratory Rate 18 18 Blood Pressure 155/86 H 145/103 H Pulse Oximetry 97 94 11/18/20 08:00 11/18/20 09:08 Temperature 97.3 F L Pulse Rate 81 92 Respiratory Rate 16 Blood Pressure 180/96 H Pulse Oximetry 96 Intake/Output Intake/Output: Intake & Output 11/15/20 11/16/20 11/17/20 11/18/20 23:59 23:59 23:59 23:59 Intake Total 1250 2271 5840 250 Output Total 1950 1000 Balance 1474 746 6421 250 Meds/Results Medications: Active Medications Generic Name Dose Route Start Last Admin Trade Name Freq PRN Reason Stop Dose Admin Acetaminophen 650 mg 11/16/20 20:53 11/18/20 05:54 Acetaminophen 325 Mg Tablet PO 650 mg Q6H PRN Administration Mild Pain (1-3) or Fever Amlodipine Besylate 5 mg 11/18/20 09:00 11/18/20 09:10 Amlodipine Besylate 5 Mg Tablet PO 5 mg QAM EMELI Administration Famotidine 20 mg 11/16/20 09:00 11/18/20 09:10 Famotidine 20 Mg/2 Ml Vial IV PUSH 20 mg Q12HR EMELI Administration Hydralazine HCl 10 mg 11/17/20 18:18 Hydralazine Hcl 20 Mg/Ml Vial IV PUSH Q8H PRN Blood Pressure - High Ceftriaxone Sodium/Dextrose 1 gm in 50 mls @ 100 mls/hr 11/15/20 21:00 11/17/20 21:07 Rocephin 1 Gm/D5w 50 Ml IVP
--- NOTE | 2020-11-18 12:55 | PM.DS ---
DS: Admitting Diagnosis Admitting Diagnosis Admitting Diagnosis: Pyelonephritis, hyperkalemia, chronic kidney disease DS: Discharge Diagnosis Discharge Diagnosis (1) Acute kidney injury superimposed on chronic kidney disease: Code(s): N17.9 - Acute kidney failure, unspecified; N18.9 - Chronic kidney disease, unspecified Status: Acute (2) HTN (hypertension), benign: Code(s): I10 - Essential (primary) hypertension Status: Acute (3) Pyelonephritis: Code(s): N12 - Tubulo-interstitial nephritis, not specified as acute or chronic Status: Acute DS: Summary Hospital Course Hospital Course: This patient is a 20-year-old multiparous female who presented 5 days after a vaginal with pyelonephritis. She had presented emergency department with flank pain and fever. She was hyperkalemic. She was admitted. She is known to have chronic kidney disease. Two. Have an exacerbation of her kidney disease with worsening kidney function associated with her pyelonephritis. For 3 days she was treated with antibiotics. She was seen by internal medicine. Her hyperkalemia was treated and resolved. Her kidney function improved. Her fever resolved. Her white count improved. She will be discharged home on hospital day 3. Status at Discharge Functional status at discharge: independent ambulation Time Spent with Patient Time attestation: Total time spent providing and/or coordinating discharge services: DS: Data Data Completed and Pending Labs on day of discharge: Labs from last 24 hours 11/18/20 11/18/20 11/18/20 11:02 06:21 06:20 WBC 10.7 H RBC 2.41 L Hgb 7.2 L Hct 21.9 L MCV 90.9 MCH 29.9 MCHC 32.9 RDW 12.7 Plt Count 302 MPV 9.0 Sodium 138 Potassium 4.6 4.5 Chloride 107 Carbon Dioxide 28 Anion Gap 3 L BUN 20 H Creatinine 1.90 H Estim Creat Clear Calc 46 Estimated GFR 33 L Glucose 99 Calcium 8.8 Phosphorus 4.9 H Albumin 3.1 L Blood Type Antibody Screen Antibody Identification Antigen Identification JEANNIE, Poly Interpret Crossmatch 11/17/20 10:29 WBC RBC Hgb Hct MCV MCH MCHC RDW Plt Count MPV Sodium Potassium Chloride Carbon Dioxide Anion Gap BUN Creatinine Estim Creat Clear Calc Estimated GFR Glucose Calcium Phosphorus Albumin Blood Type O Negative Antibody Screen Positive Antibody Identification Passive Due to RH Imm Glob Antigen Identification Cancelled JEANNIE, Poly Interpret Negative Crossmatch See Detail Preliminary micro results at discharge 11/16/20 09:50 Blood Culture - Preliminary Blood 11/16/20 09:51 Blood Culture - Preliminary Blood Discharge Plan Discharge Attending physician on discharge: Letitia Negrete Consulting providers: Arturo Curtis ; Misael Reynolds ; Madhu Acosta Patient Disposition: Home Health Service Diet: low sodium Discharge Instructions: Please provide instructions for low potassium and low sodium diet. Please follow-up with your certified driver examiner at next scheduled appointment. Check blood pressure 1 to 2 times a day. Record and bring into your doctor for review. Call your doctor if your blood pressure is greater than 180/110. Please complete your antibiotic course even if you are starting to feel well. Contact your doctor or come to the Emergency Room if you have any fevers, nausea, poor urine output or other worrisome symptoms. Avoid NSAIDs (ibuprofen, naproxen, Aleve). Tylenol is safe to take. Follow-up with your primary doctor in 1-2 weeks. Please call for appointment. No smoking tobacco and abstain from marijuana use in any form. Patient Instructions: Antibiotic Form, Dehydration (DC), Urinary Tract Infection in Women (DC), Potassium Content of Foods List (DC), Hyperkalemia (DC), Low-Sodium Diet (DC) Stand Alone Forms: General Discharge Information Follow-up/Referrals: Be
[2020-11-20 16:14] LABS: Complement Total CH50 >60 U/mL (31-60)
[2020-11-21 20:01] LABS: Hepatitis B Core Ab Total Nonreactive (Nonreactive)
[2020-11-23 12:23] LABS: ANCA Screen Negative (Negative)
--- NOTE | 2020-11-24 12:43 | PC.NURSE ---
HEP B core Ab is negative. JENNIE and ANCA are both negative. Dr. Karla garvin.
[2020-11-27 20:01] LABS: Anti Glomerular Basement Memb <1.0 AI (<1.0)
--- NOTE | 2020-11-28 07:55 | PC.NURSE ---
Anti GBM normal. Dr. Karla garvin.
== END 2020-11-18 14:30 | disposition home or self-care (01) | DRG 561 ==
LOC: ANHED 20:10 → ANH3MEDSUR 11-16 10:48
PROVIDERS: Emergency Medicine Emergency Medical Services; Internal Medicine; Admitting Provider Obstetrics & Gynecology; Emergency Provider Emergency Medicine; Visit Provider Obstetrics & Gynecology
DX: O86.21 Infection of kidney following delivery (principal); E87.5 Hyperkalemia; B96.20 Unspecified Escherichia coli [E. coli] as the cause of diseases classified elsewhere; O99.285 Endocrine, nutritional and metabolic diseases complicating the puerperium; E03.9 Hypothyroidism, unspecified; E86.0 Dehydration; O10 Pre-existing hypertension complicating pregnancy, childbirth and the puerperium; I12.9 Hypertensive chronic kidney disease with stage 1 through stage 4 chronic kidney disease, or unspecified chronic kidney disease; N18.2 Chronic kidney disease, stage 2 (mild); O99.335 Smoking (tobacco) complicating the puerperium; F17.210 Nicotine dependence, cigarettes, uncomplicated; O99.325 Drug use complicating the puerperium; F12.10 Cannabis abuse, uncomplicated; O90.81 Anemia of the puerperium; D64.9 Anemia, unspecified
CPT/HCPCS: 36415; 36430; 74176; 76856; 80048; 80053; 80069; 81001; 83520; 83605; 83735; 84100; 84132; 84443; 85025; 85027; 85610; 85730; 86021; 86038; 86160; 86162; 86704; 86706; 86803; 86850; 86880; 86900; 86901; 86902; 86920; 87040; 87077; 87086; 87088; 87186; 87340; 93005; 96361; 96365; 96366; 96367; 96368; 96375; 96376; 99285; A9270; G0378; G0379; J0131; J0610; J0696; J1815; J2060; J2270; J2543; J7030; J7050; J7070; P9016